=== PATIENT | female | born 1935 | race Caucasian/White ===

== ENCOUNTER 2021-05-24 16:29 | Emergency (ER) | payer MEDICARE, SELFPAY ==
[2021-05-24] VITALS (7 sets, daily range): BP systolic 171–212; BP diastolic 70–84; PULSE 66–77; RESP 17–19; TEMP 36.3; O2SAT 95–99; BMI 23.1
[2021-05-24] MEDS: methylPREDNISolone 125 MG/2 ML VIAL IV (18:34)
[2021-05-24] MEDS: SODIUM CHLORIDE 0.9% 1,000 ML 1000 ML IV (18:34)
[2021-05-24 18:43] LABS: Add Manual Diff / Slide Review NO; Basophils Absolute Auto 100 /uL (0-100); Basophils Percent Auto 0.7 % (0-2); Eosinophils Absolute Auto 100 /uL (0-450); Eosinophils Percent Auto 0.4 % (2-4); Hematocrit 36.3 % (36-46); Hemoglobin 12.3 g/dL (12.0-16.0); Lymphocytes Absolute Auto 2800 /uL (1100-4500); Lymphocytes Percent Auto 23.1 % (25-40); Mean Corpuscular Hemoglobin 29.6 PG (26-34); Mean Corpuscular Volume 87.1 fL (80-100); Monocytes Absolute Auto 800 /uL (0-900); Monocytes Percent Auto 6.5 % (3-14); Neutrophils Absolute Auto 8200 /uL (1500-7000); Neutrophils Percent Auto 69.3 % (50-75); Platelet Count 268 X10^3/uL (150-400); Red Blood Cell Count 4.17 X10^6/uL (4.0-5.2); Red Cell Distribution Width 12.9 % (11.6-14.8); White Blood Cell Count 11.9 X10^3/uL (4.5-11.0)
[2021-05-24 18:52] LABS: Lactate (Lactic Acid) 0.9 mmol/L (0.7-2.1)
[2021-05-24 18:53] LABS: Alanine Aminotransferase 16 IU/L (<35); Albumin 4.7 g/dL (3.5-5.0); Albumin Globulin Ratio 1.3 (1.0-2.8); Alkaline Phosphatase 81 U/L (38-126); Aspartate Aminotransferase 29 IU/L (14-36); Bilirubin Total 0.6 mg/dL (0.2-1.3); Blood Urea Nitrogen 16 mg/dL (7-17); Calcium 9.8 mg/dL (8.4-10.2); Carbon Dioxide 27 mmol/L (22-32); Chloride 94 mmol/L (98-107); Estimated Glomerular Filt Rate > 60.0 mL/min (>60); Globulin 3.5 g/dL (1.7-4.1); Glucose 101 mg/dL (80-110); HEMOLYSIS < 15 (0-50); Lipase 257 U/L (23-300); Potassium 4.1 mmol/L (3.4-5.1); Sodium 132 mmol/L (137-145); Total Protein 8.2 g/dL (6.3-8.2)
[2021-05-24 20:14] LABS: Appearance Urine UA CLEAR; Bilirubin Urine UA NEGATIVE (NEGATIVE); Color Urine UA YELLOW; Glucose Urine UA NEGATIVE (Negative); Ketones Urine UA TRACE (NEGATIVE); Leukocyte Esterase Urine UA NEGATIVE (NEGATIVE); Nitrite Urine UA NEGATIVE (Negative); Occult Blood Urine UA 1+ (Negative); Protein Urine UA NEGATIVE (Negative); Urobilinogen Urine UA 0.2 E.U./dL (0.2)
[2021-05-24 20:20] LABS: RBC Urine 1-5/HPF (0-5/HPF)
[2021-05-24 20:21] LABS: Bacteria Urine None Seen; Culture Indicated Urine Cult Not Indicated; WBC Urine None Seen (0-5/HPF)
--- NOTE | 2021-05-24 21:09 | ED_ITS ---
HPI - General Adult General Chief complaint: Dental/Oral Stated complaint: LT JAW CAROTID SWOLLEN/PAINFUL,ON ANTIBIOTICS 05/19 Time Seen by Provider: 05/24/21 18:23 Source: patient Mode of arrival: Family Vehicle Limitations: no limitations History of Present Illness HPI narrative: 85-year-old woman with a history of hypertension, hyperthyroidism, depression, hyperlipidemia who has had of week of left parotid swelling and pain. She saw her primary care doctor who started her on amoxicillin but she has not gotten any better. She states that it hurts somewhat she has not been able to eat much and specifically has not been able to try any sour liquids foods or candies. She says about a year ago she did have a parotid duct stone on the right side that was sharp and the dentist was able to physically remove with minimal difficulty. She has not noticed the same sharp sensation on the left side but does notice some swelling along the parotid duct. She has noticed increasing swelling over the left face and submental area. She describes a low-grade fever yesterday and pain becoming increasingly worse. She has had no recent cough, palpitation, chills, abdominal pain, vomiting or diarrhea. Related Data Home Medications Medication Instructions Recorded Confirmed COENZYME Q10/VITAMIN E (CO-Q-10 100 mg PO QDAY #0 11/10/12 100mg) Previous Rx's Medication Instructions Recorded betamethasone dipropionate 0.05 % 0 TOPICAL QDAY #15 gm 07/22/16 topical ointment atorvastatin 40 mg tablet (Lipitor) 40 mg PO HS #90 tab 12/01/16 metoprolol tartrate 25 mg tablet 25 mg PO BID #180 tab 01/31/17 methimazole 5 mg tablet 5 mg PO QDAY #90 tab 02/07/17 citalopram 20 mg tablet 20 mg PO QDAY #90 tab 03/02/17 lisinopril 10 1 tab PO BID #180 tab 03/02/17 mg-hydrochlorothiazide 12.5 mg tablet oxycodone-acetaminophen 5 mg-325 0.5 tab PO QID #56 tab 03/17/17 mg tablet dexamethasone 4 mg tablet 8 mg PO DAILY #6 tab 05/24/21 (Decadron) Allergies Allergy/AdvReac Type Severity Reaction Status Date / Time [place] Inhibitors AdvReac Unknown causes Verified 05/24/21 17:02 increased potassium Review of Systems Review of Systems Narrative: Remainder of complete review of systems is otherwise unremarkable except for that included in the HPI. Patient History Medical History Cataract (1999) Chicken pox Chronic back pain (2015) Colon polyps (1997) Graves' disease (2005) Hemorrhoids Hypertension Mumps Osteopenia (05/14/15) RLS (restless legs syndrome) (2015) Shoulder pain (2001) Whooping cough Surgical History Anesthesia History of cataract surgery (1999) History of shoulder surgery (2001) Family History Father Cancer Heart disease Mother Cancer Pancreatic cancer Brother Alcoholism Sister No problems noted. Social History Smoking Status: Current every day smoker Smoking Status: Current every day smoker tobacco type: cigarettes alcohol intake frequency: 0-2 drinks per day Substance Use Type: does not use Exam Narrative Exam Narrative: General: Alert appropriate in no acute distress HEENT: Swelling over the left angle of the jaw consistent with her parotid gland, tender to the touch but not erythematous or fluctuant. She has some trismus secondary to pain in that area. Minor swelling over the face toward her maxilla on the left and swelling under the angle of the jaw with no airway compromise. On the buccal mucosa the parotid duct opening is tender swollen no obvious stone is appreciated and I a.m. concerned that there may actually be some type of mass in that area. Respiratory: Able to speak in full sentences, no obvious respiratory distress Skin: No obvious rashes, warm and dry Neurologic: Grossly intact no obvious asymmetries or abnormalities Psych: appropriate insight and affect, cooperative Initial Vital Signs Initial Vital Signs: Vital Signs Temperature 97.3 F L 05/24/21 16:57 Pulse Rate 75 05/24/21 16:57 Respiratory Rate 19 05/24/21 16:57 Blood Pressure 212/84 H 05/24/21 16:57 Pulse Oximetry 98 05/24/21 16:57 Course Orders Ordered: ED Orders 05/24/21 18:41 Complete Blood Count AUTO DIFF Stat Comprehensive Metabolic Panel Stat Lactate (Lactic Acid) Stat Lipase Stat 05/24/21 18:45 Blood Culture Stat 05/24/21 20:10 Urinalysis and Microscopic Stat 05/24/21 21:21 CT soft tissue neck w con Stat Discontinued Medications Sodium Chloride (Normal Saline 0.9%) 1,000 mls @ 1,000 mls/hr IV BOLUS ONE Stop: 05/24/21 19:22 Last Infusion: 05/24/21 20:49 Dose: 0 mls/hr Documented by: Admin: 05/24/21 18:34 Dose: 1,000 mls/hr Documented by: BONITAOR Sodium Chloride (Normal Saline 0.9%) 1,000 mls @ 1,000 mls/hr IV BOLUS ONE Stop: 05/24/21 22:20 Last Admin: 05/24/21 21:37 Dose: Not Given Documented by: VIKAS Ceftriaxone Sodium 1,000 mg/ (Sodium Chloride) 100 mls @ 200 mls/hr IV NOW ONE Stop: 05/24/21 21:22 Last Infusion: 05/24/21 22:18 Dose: 0 mls/hr Documented by: Infusion: 05/24/21 21:43 Dose: 200 mls/hr Documented by: Infusion: 05/24/21 21:37 Dose: 0 mls/hr Documented by: Admin: 05/24/21 21:36 Dose: 200 mls/hr Documented by: VIKAS Ketorolac Tromethamine (Ketorolac 30 Mg/Ml Vial) 15 mg IV NOW ONE Stop: 05/24/21 21:29 Last Admin: 05/24/21 21:34 Dose: 15 mg Documented by: VIKAS Methylprednisolone (Methylprednisolone 125 Mg/2 Ml Vial) 125 mg IV NOW ONE Stop: 05/24/21 18:24 Last Admin: 05/24/21 18:34 Dose: 125 mg Documented by: VIKAS Vital Signs Vital signs: Vital Signs - 8 hr 05/24/21 16:57 05/24/21 19:07 05/24/21 19:09 Temperature 97.3 F L Pulse Rate 75 69 66 Respiratory Rate 19 17 Blood Pressure 212/84 H 190/82 H 193/81 H Pulse Oximetry 98 97 99 05/24/21 19:30 05/24/21 19:31 05/24/21 20:01 Temperature Pulse Rate 67 71 74 Respiratory Rate 18 Blood Pressure 199/75 H 171/70 H Pulse Oximetry 98 98 98 05/24/21 22:59 Temperature Pulse Rate 77 Respiratory Rate Blood Pressure 193/83 H Pulse Oximetry 95 Medical Decision Making Lab Data Result diagrams: 05/24/21 18:41 05/24/21 18:41 Labs: Lab Results 05/24/21 05/24/21 05/24/21 Range/Units 18:41 18:41 18:41 WBC 11.9 H (4.5-11.0) X10^3/uL RBC 4.17 (4.0-5.2) X10^6/uL Hgb 12.3 (12.0-16.0) g/dL Hct 36.3 (36-46) % MCV 87.1 (80-100) fL MCH 29.6 (26-34) PG MCHC 34.0 (30-36) % RDW 12.9 (11.6-14.8) % Plt Count 268 (150-400) X10^3/uL Neut % (Auto) 69.3 (50-75) % Lymph % (Auto) 23.1 L (25-40) % Tyler % (Auto) 6.5 (3-14) % Eos % (Auto) 0.4 L (2-4) % Baso % (Auto) 0.7 (0-2) % Neut # (Auto) 8200 H (7085-8387) /uL Lymph # (Auto) 2800 (0519-1629) /uL Tyler # (Auto) 800 (0-900) /uL Eos # (Auto) 100 (0-450) /uL Baso # (Auto) 100 (0-100) /uL Sodium 132 L (137-145) mmol/L Potassium 4.1 (3.4-5.1) mmol/L Chloride 94 L (98-107) mmol/L Carbon Dioxide 27 (22-32) mmol/L BUN 16 (7-17) mg/dL Creatinine 0.80 (0.52-1.04) mg/dL Estimated GFR > 60.0 (>60) mL/min BUN/Creatinine Ratio 20.0 (6-22) Glucose 101 (80-110) mg/dL Lactate 0.9 (0.7-2.1) mmol/L Calcium 9.8 (8.4-10.2) mg/dL Total Bilirubin 0.6 (0.2-1.3) mg/dL AST 29 (14-36) IU/L ALT 16 (<35) IU/L Alkaline Phosphatase 81 (38-126) U/L Total Protein 8.2 (6.3-8.2) g/dL Albumin 4.7 (3.5-5.0) g/dL Globulin 3.5 (1.7-4.1) g/dL Albumin/Globulin Ratio 1.3 (1.0-2.8) Lipase 257 (23-300) U/L Urine Color Urine Appearance Urine pH (4.5-8.0) Ur Specific Burnet (1.000-1.035) Urine Protein (Negative) Urine Glucose (UA) (Negative) g/dL Urine Ketones (NEGATIVE) Urine Occult Blood (Negative) Urine Nitrate (Negative) Urine Bilirubin (NEGATIVE) Urine Urobilinogen (0.2) E.U./dL Ur Leukocyte Esterase (NEGATIVE) Urine RBC (0-5/HPF) Urine WBC (0-5/HPF) Urine Bacteria (None) Ur Culture Indicated? 05/24/21 Range/Units 20:10 WBC (4.5-11.0) X10^3/uL RBC (4.0-5.2) X10^6/uL Hgb (12.0-16.0) g/dL Hct (36-46) % MCV (80-100) fL MCH (26-34) PG MCHC (30-36) % RDW (11.6-14.8) % Plt Count (150-400) X10^3/uL Neut % (Auto) (50-75) % Lymph % (Auto) (25-40) % Tyler % (Auto) (3-14) % Eos % (Auto) (2-4) % Baso % (Auto) (0-2) % Neut # (Auto) (6409-1059) /uL Lymph # (Auto) (8310-3634) /uL Tyler # (Auto) (0-900) /uL Eos # (Auto) (0-450) /uL Baso # (Auto) (0-100) /uL Sodium (137-145) mmol/L Potassium (3.4-5.1) mmol/L Chloride (98-107) mmol/L Carbon Dioxide (22-32) mmol/L BUN (7-17) mg/dL Creatinine (0.52-1.04) mg/dL Estimated GFR (>60) mL/min BUN/Creatinine Ratio (6-22) Glucose (80-110) mg/dL Lactate (0.7-2.1) mmol/L Calcium (8.4-10.2) mg/dL Total Bilirubin (0.2-1.3) mg/dL AST (14-36) IU/L ALT (<35) IU/L Alkaline Phosphatase (38-126) U/L Total Protein (6.3-8.2) g/dL Albumin (3.5-5.0) g/dL Globulin (1.7-4.1) g/dL Albumin/Globulin Ratio (1.0-2.8) Lipase (23-300) U/L Urine Color Yellow Urine Appearance Clear Urine pH 7.0 (4.5-8.0) Ur Specific Burnet 1.010 (1.000-1.035) Urine Protein Negative (Negative) Urine Glucose (UA) Negative (Negative) g/dL Urine Ketones Trace H (NEGATIVE) Urine Occult Blood 1+ H (Negative) Urine Nitrate Negative (Negative) Urine Bilirubin Negative (NEGATIVE) Urine Urobilinogen 0.2 (0.2) E.U./dL Ur Leukocyte Esterase Negative (NEGATIVE) Urine RBC 1-5/hpf (0-5/HPF) Urine WBC None seen (0-5/HPF) Urine Bacteria None seen (None) Ur Culture Indicated? Cult not indicated Imaging Data CT soft tissue neck: Radiologist's Impression: FINDINGS:? Image quality:? Excellent.? ? Lymph nodes:? No definite lymphadenopathy by size criteria. ? Vessels:? Visualized vasculature appears patent.? ? Neck spaces:? There is an oval solid mass within the left hypopharynx centered in the left piriform sinus measuring approximately 2.3 x 1.9 x 3.2 cm.? There is associated moderate narrowing of the airway.? The mass demonstrates extension superiorly to involve the left aspect of the epiglottis.? There is extension inferiorly to the level of the false vocal cords and thyroid cartilage.? Invasion into the posterior and lateral rodriguez of the hypopharynx cannot be excluded.? The vocal cords appear symmetric.? The oropharynx and nasopharynx demonstrate no mucosal lesions.? The base of tongue also demonstrates no discrete mass. ? Glands:? The parotid and submandibular glands appear normal.? There is a left thyroid solid nodule measuring to 2.1 x 1.5 cm. ? Miscellaneous:? Visualized brain and orbits appear normal.? The visualized lungs demonstrate scarring in the apices.? Superficial soft tissues appear normal. ? Bones:? No suspicious bony lesions.? Visualized sinuses and mastoids appear unremarkable. ? ? ? IMPRESSION:? ? 1. Solid mass in the left hypopharynx centered within the piriform sinus demonstrated.? 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 Direct visualization is recommended. ? 2. No lymphadenopathy in the neck by size criteria. ? 3. Solid left thyroid nodule measuring up to 2.1 cm. Recommend further evaluation with thyroid ultrasound.? Dictated by: Tom Pelletier M.D. on 05/24/2021 at 21:51? ?? MDM Narrative Medical decision making narrative: 85-year-old woman with a week of left-sided parotid pain and swelling not improving with amoxicillin and unable to eat or drink secondary to the pain. Increasing fullness now including her face and under the angle of her jaw. Airway is not involved. Tenderness over the parotid duct with no obvious palpable stone. Mild leukocytosis. Will give her a L of fluid, g of IV ceftriaxone, Toradol for pain control and increase that to narcotics if required. Will obtain a CT scan of the soft tissue of the parotid gland/neck CT scan reveals a solid mass in the left hypopharynx measuring 2.3 x 1.9 x 3.2 c m as well as solid left thyroid nodule measuring 2.1 cm. 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 She does feel significantly better after both steroids and Toradol. Findings reviewed with patient and her son in detail. I spoke with Dr. Williamson who will have his office contact her for an appointment in the near future. Also spoke with Dr. Shelton Barksdale will be expecting to see her in his office for evaluation and hopefully fine needle biopsy of the area of concern. In the meantime, the patient does have small amount of Percocet at home that she occasionally uses for interstitial cystitis pain. I have told her she can use this as well as ibuprofen. I have also given her a 3 day course of Decadron to help with swelling as the seem to be the pivotal component in reducing pain for her. Questions were answered and patient and her son felt comfortable with discharge home. Discharge Plan Departure Patient Disposition: Home Clinical Impression: Mass of hypopharynx Activity Restrictions/Additional Instructions: Thank you for coming in today This is not your parotid gland and it is not an infection. You can stop taking your antibiotics. Unfortunately, your CT scan shows a mass in the back of your throat that is very likely a cancer. I am so sorry to find that. You were given a dose of steroid in the emergency department and I believe that is the main thing that helped with the pain. It has reduced the swelling a little bit. I am going to have you complete 3 more days of steroids to help with the swelling and pain. There are number of things that still need to happen to figure out what this is and what needs to happen next. First, you will need to see an ear nose and throat doctor and he will need to do an exam and hopefully be able to do a small needle aspiration to be able to get some cells to look at under the microscope and figure out what this truly is and what we need to do next. I spoke with Dr. Shelton Barksdale with [facility]. Please give his office a call at [phone] tomorrow morning. He likely will not be able to see you on Tuesday but should be able to fit you in early this week. I also spoke with Dr. Williamson, one of our oncologists. Please expect a call from the the oncology department to set up an appointment to meet with one of the oncologists. If you do have continued pain, you can use some of the Percocet that you have at home for your interstitial cystitis. Please let Dr. Mills know about your diagnosis so he can refill Percocet if needed. Using 400 mg of ibuprofen (2 [id number] pills) and 1 Tylenol every 6 hour s can be very helpful in controlling pain. I wish you the very best as you work through all of these doctors appointments to get to a final diagnosis. Prescriptions: New dexamethasone [Decadron] 4 mg tablet 8 mg PO DAILY Qty: 6 RF: 0 No Action COENZYME Q10/VITAMIN E (CO-Q-10 100mg) 100 mg PO QDAY Qty: 0 RF: 0 betamethasone dipropionate 0.05 % ointment 0 Topical QDAY Qty: 15 RF: 0 atorvastatin [Lipitor] 40 MG tablet 40 mg PO HS Qty: 90 RF: 1 metoprolol tartrate 25 MG tablet 25 mg PO BID Qty: 180 RF: 1 methimazole 5 MG tablet 5 mg PO QDAY Qty: 90 RF: 1 citalopram 20 MG tablet 20 mg PO QDAY Qty: 90 RF: 0 lisinopril-hydrochlorothiazide 10 MG/12.5 MG tablet 1 tab PO BID Qty: 180 RF: 1 oxycodone-acetaminophen 5 MG/325 MG tablet 0.5 tab PO QID Qty: 56 RF: 0 Referrals: Shelton Barksdale MD [Physician] - Geovany Lemus MD [Physician] - Kj Schuster MD [Primary Care Provider] -
--- NOTE | 2021-05-24 21:21 | DI.CT.S_ITS ---
PROCEDURE: CT SOFT TISSUE NECK W CON INDICATIONS: parotid glan swelling/fullness worse after 1 week TECHNIQUE: After the administration of intravenous contrast, 3.0 mm axial sections acquired from the sella to the aortic arch. Additional oblique axial 3.0 mm sections acquired through the pharynx. 3 mm thick coronal and sagittal reformats were generated. For radiation dose reduction, the following was used: automated exposure control. COMPARISON: None. FINDINGS: Image quality: Excellent. Lymph nodes: No definite lymphadenopathy by size criteria. Vessels: Visualized vasculature appears patent. Neck spaces: There is an oval solid mass within the left hypopharynx centered in the left piriform sinus measuring approximately 2.3 x 1.9 x 3.2 cm. There is associated moderate narrowing of the airway. The mass demonstrates extension superiorly to involve the left aspect of the epiglottis. There is extension inferiorly to the level of the false vocal cords and thyroid cartilage. Invasion into the posterior and lateral rodriguez of the hypopharynx cannot be excluded. The vocal cords appear symmetric. The oropharynx and nasopharynx demonstrate no mucosal lesions. The base of tongue also demonstrates no discrete mass. Glands: The parotid and submandibular glands appear normal. There is a left thyroid solid nodule measuring to 2.1 x 1.5 cm. Miscellaneous: Visualized brain and orbits appear normal. The visualized lungs demonstrate scarring in the apices. Superficial soft tissues appear normal. Bones: No suspicious bony lesions. Visualized sinuses and mastoids appear unremarkable. IMPRESSION: 1. Solid mass in the left hypopharynx centered within the piriform sinus demonstrated. Findings likely represent a neoplasm such as squamous cell carcinoma. Direct visualization is recommended. 2. No lymphadenopathy in the neck by size criteria. 3. Solid left thyroid nodule measuring up to 2.1 cm. Recommend further evaluation with thyroid ultrasound. Dictated by: Tom Pelletier M.D. on 05/24/2021 at 21:51 Approved by: Tom Pelletier M.D. on 05/24/2021 at 22:06
[2021-05-24] MEDS: KETOROLAC 30 MG/ML VIAL 15 MG IV (21:34)
[2021-05-24] MEDS: cefTRIAXone 1,000 MG in SODIUM CHLORIDE 0.9% 100 ML 200 ML IV (21:36)
== END 2021-05-24 23:44 | disposition home or self-care (01) ==
PROVIDERS: Emergency Provider Emergency Medicine; Family Provider Family Medicine; PCP Family Medicine
DX: J39.2 Other diseases of pharynx (principal)
CPT/HCPCS: 36415; 70491; 80053; 81001; 83605; 83690; 85025; 87040; 96361; 96365; 96375; 99284; J0696; J1885; J2930; Q9967

== ENCOUNTER 2021-06-04 18:02 | Observation (INO) | payer MEDICARE, SELFPAY ==
[2021-06-04] VITALS (9 sets, daily range): BP systolic 138–202; BP diastolic 64–90; PULSE 70–80; RESP 14–16; TEMP 36.2–36.7; O2SAT 97–100; BMI 22.3
--- NOTE | 2021-06-04 18:14 | ED.NAVMDI ---
HPI - Nausea/Vomiting/Diarrhea General Chief complaint: Nausea/Vomiting/Diarrhea Stated complaint: Diarrhea,pt on Augmentin Time Seen by Provider: 06/04/21 18:30 History of Present Illness HPI Narrative: 85-year-old female smoker with history of hyperlipidemia presents by air medical transport for evaluation of weakness and lightheadedness after multiple days of loose watery stool. She had started with some pain and swelling on the left side of her face and was diagnosed with an infectious process and placed on Augmentin. She had imaging wits suggested the potential of a tumor on her vocal cords but after evaluation by ENT it was thought to be a cyst. Since being on Augmentin she has developed crampy abdominal pain and frequent episodes of loose watery stools that are foul smelling. She has had very little to eat or drink in the past 2 weeks. She is dizzy and lightheaded and on arrival medics found her to be orthostatic. She was given 500 cc of fluid EN route and is here for evaluation. Related Data Home Medications Medication Instructions Recorded Confirmed COENZYME Q10/VITAMIN E (CO-Q-10 100 mg PO QDAY #0 11/10/12 06/04/21 100mg) betamethasone dipropionate 0.05 % 0 TOPICAL QWEEK 06/04/21 topical ointment oxycodone-acetaminophen 5 mg-325 1 tab PO QID PRN MDD 4 06/04/21 06/04/21 mg tablet Previous Rx's Medication Instructions Recorded atorvastatin 40 mg tablet (Lipitor) 40 mg PO HS #90 tab 12/01/16 metoprolol tartrate 25 mg tablet 25 mg PO BID #180 tab 01/31/17 methimazole 5 mg tablet 5 mg PO QDAY #90 tab 02/07/17 citalopram 20 mg tablet 20 mg PO QDAY #90 tab 03/02/17 lisinopril 10 1 tab PO BID #180 tab 03/02/17 mg-hydrochlorothiazide 12.5 mg tablet Allergies Allergy/AdvReac Type Severity Reaction Status Date / Time [place] Inhibitors AdvReac Unknown causes Verified 06/04/21 18:14 increased potassium Review of Systems Review of Systems Narrative: GENERAL: See HPI HEENT: See HPI RESPIRATORY: Denies dyspnea, cough, wheezing, hemoptysis, sputum. CARDIOVASCULAR: Denies chest pain, palpitations, orthopnea, edema, GASTROINTESTINAL: See HPI : Denies dysuria, frequency, incontinence, hematuria, urinary retention. MUSCULOSKELETAL: denies weakness, joint pain, or bony pain SKIN: Denies rash, skin lesions, or other NEUROLOGIC: Denies weakness, headache, numbness, change in speech, confusion, seizures, incoordination. PSYCHIATRIC: No concerning psychosocial issues. 12 point review of systems is negative except for those stated above Patient History Medical History Cataract (1999) Chicken pox Chronic back pain (2015) Colon polyps (1997) Graves' disease (2005) Hemorrhoids Hypertension Mumps Osteopenia (05/14/15) RLS (restless legs syndrome) (2015) Shoulder pain (2001) Whooping cough Surgical History Anesthesia History of cataract surgery (1999) History of shoulder surgery (2001) Family History Father Cancer Heart disease Mother Cancer Pancreatic cancer Brother Alcoholism Sister No problems noted. Social History household members: none Smoking Status: Former smoker alcohol intake: never Smoking Status: Current every day smoker tobacco type: cigarettes alcohol intake frequency: 0-2 drinks per day Substance Use Type: does not use Exam Narrative Exam Narrative: GENERAL: [85 year old patient appears stated age. Ill appearing HEAD: Atraumatic. Normocephalic. EYES: Pupils equal round and reactive. Extraocular motions intact. No scleral icterus. No injection or drainage. ENT:Dry mucous membranes. Mild left sided facial swelling and erythema withouit fluctuance. Nose without bleeding, purulent drainage. Throat without erythema, tonsillar hypertrophy or exudate. Airway patent. NECK: Trachea midline. Non tender CARDIOVASCULAR: Regular rate and rhythm without murmurs, gallops, or rubs. RESPIRATORY: Clear to auscultation. Breath sounds equal bilaterally. No wheezes, rales, or rhonchi. GASTROINTESTINAL: Abdomen soft, non-tender, nondistended. EXTREMITIES: No edema or joint tenderness. BACK: Nontender without deformity or crepitance. No flank tenderness. NEURO: AOx3. SKIN: Poor skin turgor. No rash or erythema of visible areas Initial Vital Signs Initial Vital Signs: Vital Signs Temperature 98.0 F 06/04/21 18:04 Pulse Rate 71 06/04/21 18:04 Respiratory Rate 14 06/04/21 18:04 Blood Pressure 164/76 H 06/04/21 18:04 Pulse Oximetry 98 06/04/21 18:04 Course Orders Ordered: Acetaminophen (Acetaminophen 325 Mg Tablet) 650 mg PO Q6HR PRN PRN Reason: Fever/Mild Pain (1-3) Atorvastatin Calcium (Atorvastatin 20 Mg Tablet) 40 mg PO BEDTIME [facility] Last Admin: 06/04/21 22:25 Dose: 40 mg Documented by: HANSA Citalopram Hydrobromide (Citalopram 10 Mg Tablet) 20 mg PO DAILY [facility] Enoxaparin Sodium (Enoxaparin 40 Mg/0.4 Ml Syringe) 40 mg SUBCUT DAILY [facility] Dextrose/Sodium Chloride (Dextrose 5%-0.9% Ns) 1,000 mls @ 125 mls/hr IV CONT [facility] Last Admin: 06/04/21 22:24 Dose: 125 mls/hr Documented by: HANSA Lisinopril (Lisinopril 10 Mg Tablet) 10 mg PO DAILY [facility] Methimazole (Methimazole 5 Mg Tablet) 5 mg PO DAILY [facility] Metoprolol Succinate (Metoprolol Er 25 Mg Tablet) 25 mg PO BID [facility] Last Admin: 06/04/21 22:26 Dose: 25 mg Documented by: HANSA Naloxone HCl (Naloxone 0.4 Mg/Ml Vial) 0.2 mg IV Q2MIN PRN PRN Reason: Opiate Reversal Ondansetron HCl (Ondansetron 4 Mg/2 Ml Inj) 4 mg IV Q8HR PRN PRN Reason: Nausea And Vomiting Oxycodone/Acetaminophen (Oxycodone/Acetaminophen 5/325 Tablet) 1 tab PO Q4HR PRN PRN Reason: Pain, Moderate (4-6) Last Admin: 06/04/21 22:25 Dose: 1 tab Documented by: HANSA Discontinued Medications Sodium Chloride (Normal Saline 0.9%) 1,000 mls @ 1,000 mls/hr IV BOLUS ONE Stop: 06/04/21 19:06 Last Infusion: 06/04/21 19:43 Dose: 0 mls/hr Documented by: Admin: 06/04/21 18:20 Dose: 1,000 mls/hr Documented by: ATAYLOR Vital Signs Vital signs: Vital Signs - 8 hr 06/04/21 18:04 Temperature 98.0 F Pulse Rate 71 Respiratory Rate 14 Blood Pressure 164/76 H Pulse Oximetry 98 MDM - Nausea/Vomiting/Diarrhea Lab Data Result diagrams: 06/04/21 18:25 06/04/21 18:25 Labs: Lab Results 06/04/21 06/04/21 06/04/21 Range/Units 18:25 18:25 18:25 WBC 17.2 H (4.5-11.0) X10^3/uL RBC 4.47 (4.0-5.2) X10^6/uL Hgb 13.1 (12.0-16.0) g/dL Hct 38.3 (36-46) % MCV 85.7 (80-100) fL MCH 29.3 (26-34) PG MCHC 34.2 (30-36) % RDW 13.1 (11.6-14.8) % Plt Count 302 (150-400) X10^3/uL Neut % (Auto) 80.0 H (50-75) % Lymph % (Auto) 14.7 L (25-40) % [place] % (Auto) 4.5 (3-14) % Eos % (Auto) 0.4 L (2-4) % Baso % (Auto) 0.4 (0-2) % Neut # (Auto) 31906 H (2477-8009) /uL Lymph # (Auto) 2500 (4205-5174) /uL [place] # (Auto) 800 (0-900) /uL Eos # (Auto) 100 (0-450) /uL Baso # (Auto) 100 (0-100) /uL Sodium 121 L (137-145) mmol/L Potassium 3.8 (3.4-5.1) mmol/L Chloride 88 L (98-107) mmol/L Carbon Dioxide 27 (22-32) mmol/L BUN 24 H (7-17) mg/dL Creatinine 0.85 (0.52-1.04) mg/dL Estimated GFR > 60.0 (>60) mL/min BUN/Creatinine Ratio 28.2 H (6-22) Glucose 108 (80-110) mg/dL Lactate 1.1 (0.7-2.1) mmol/L Calcium 8.9 (8.4-10.2) mg/dL Magnesium (1.6-2.3) mg/dL Total Bilirubin 0.5 (0.2-1.3) mg/dL AST 41 H (14-36) IU/L ALT 18 (<35) IU/L Alkaline Phosphatase 73 (38-126) U/L Total Protein 6.5 (6.3-8.2) g/dL Albumin 3.7 (3.5-5.0) g/dL Globulin 2.8 (1.7-4.1) g/dL Albumin/Globulin Ratio 1.3 (1.0-2.8) Lipase (23-300) U/L SARS-CoV-2 (PCR) (Negative) 06/04/21 06/04/21 Range/Units 18:25 18:45 WBC (4.5-11.0) X10^3/uL RBC (4.0-5.2) X10^6/uL Hgb (12.0-16.0) g/dL Hct (36-46) % MCV (80-100) fL MCH (26-34) PG MCHC (30-36) % RDW (11.6-14.8) % Plt Count (150-400) X10^3/uL Neut % (Auto) (50-75) % Lymph % (Auto) (25-40) % [place] % (Auto) (3-14) % Eos % (Auto) (2-4) % Baso % (Auto) (0-2) % Neut # (Auto) (3724-6721) /uL Lymph # (Auto) (5787-7736) /uL [place] # (Auto) (0-900) /uL Eos # (Auto) (0-450) /uL Baso # (Auto) (0-100) /uL Sodium (137-145) mmol/L Potassium (3.4-5.1) mmol/L Chloride (98-107) mmol/L Carbon Dioxide (22-32) mmol/L BUN (7-17) mg/dL Creatinine (0.52-1.04) mg/dL Estimated GFR (>60) mL/min BUN/Creatinine Ratio (6-22) Glucose (80-110) mg/dL Lactate (0.7-2.1) mmol/L Calcium (8.4-10.2) mg/dL Magnesium 1.8 (1.6-2.3) mg/dL Total Bilirubin (0.2-1.3) mg/dL AST (14-36) IU/L ALT (<35) IU/L Alkaline Phosphatase (38-126) U/L Total Protein (6.3-8.2) g/dL Albumin (3.5-5.0) g/dL Globulin (1.7-4.1) g/dL Albumin/Globulin Ratio (1.0-2.8) Lipase 560 H (23-300) U/L SARS-CoV-2 (PCR) Negative (Negative) Urine Dip Bedside Urine Glucose Negative Bedside Urine Bilirubin - Negative Bedside Urine Ketone - Negative Urine Specific [place] 1.015 Bedside Urine Occult Blood +/- Bedside Urine pH 6.5 Bedside Urine Protein +/- 15 Bedside Urine Urobilinogen 0.2 Bedside Urine Nitrite - Negative Bedside Urine Leukocytes - Negative Esterase MDM Narrative Medical decision making narrative: Elderly female with frequent loose stools and significant dehydration over the past few days. She has become dehydrated is orthostatic and has had little if anything to eat or drink. There is concern for C diff but stool cultures have not yet been obtained. Labs demonstrate a significantly low sodium. She requires hospitalization for ongoing treatment and stabilization of her condition Discharge Plan Departure Patient Disposition: Admitted As Inpatient Clinical Impression: Acute hyponatremia, Diarrhea, Weakness Admit Date/Time: 06/04/21 20:18 Admit Provider: Jennifer Ortega
[2021-06-04] MEDS: SODIUM CHLORIDE 0.9% 1,000 ML 1000 ML IV (18:20)
[2021-06-04 18:41] LABS: Add Manual Diff / Slide Review NO; Basophils Absolute Auto 100 /uL (0-100); Basophils Percent Auto 0.4 % (0-2); Eosinophils Absolute Auto 100 /uL (0-450); Eosinophils Percent Auto 0.4 % (2-4); Hematocrit 38.3 % (36-46); Hemoglobin 13.1 g/dL (12.0-16.0); Lymphocytes Absolute Auto 2500 /uL (1100-4500); Lymphocytes Percent Auto 14.7 % (25-40); Mean Corpuscular HGB Conc 34.2 % (30-36); Mean Corpuscular Hemoglobin 29.3 PG (26-34); Mean Corpuscular Volume 85.7 fL (80-100); Monocytes Absolute Auto 800 /uL (0-900); Monocytes Percent Auto 4.5 % (3-14); Neutrophils Absolute Auto 13800 /uL (1500-7000); Platelet Count 302 X10^3/uL (150-400); Red Blood Cell Count 4.47 X10^6/uL (4.0-5.2); Red Cell Distribution Width 13.1 % (11.6-14.8); White Blood Cell Count 17.2 X10^3/uL (4.5-11.0)
[2021-06-04 19:02] LABS: Lactate (Lactic Acid) 1.1 mmol/L (0.7-2.1)
[2021-06-04 19:03] LABS: Alanine Aminotransferase 18 IU/L (<35); Albumin 3.7 g/dL (3.5-5.0); Albumin Globulin Ratio 1.3 (1.0-2.8); Alkaline Phosphatase 73 U/L (38-126); Aspartate Aminotransferase 41 IU/L (14-36); BUN Creatinine Ratio 28.2 (6-22); Bilirubin Total 0.5 mg/dL (0.2-1.3); Blood Urea Nitrogen 24 mg/dL (7-17); Calcium 8.9 mg/dL (8.4-10.2); Carbon Dioxide 27 mmol/L (22-32); Chloride 88 mmol/L (98-107); Estimated Glomerular Filt Rate > 60.0 mL/min (>60); Globulin 2.8 g/dL (1.7-4.1); Glucose 108 mg/dL (80-110); HEMOLYSIS < 15 (0-50); Potassium 3.8 mmol/L (3.4-5.1); Sodium 121 mmol/L (137-145); Total Protein 6.5 g/dL (6.3-8.2)
[2021-06-04 19:27] LABS: Lipase 560 U/L (23-300); Magnesium 1.8 mg/dL (1.6-2.3)
[2021-06-04 19:55] LABS: COVID19 - ADMIT (NP swab/PCR) Negative (Negative)
--- NOTE | 2021-06-04 21:59 | P.HP_ITS ---
History of Present Illness History of Present Illness Date Patient Seen: 06/04/21 Chief complaint: Diarrhea,pt on Augmentin Narrative: The patient is an 85-year-old female with a history of Graves disease, hypertension, chronic back pain, restless leg syndrome who developed parotidits about 2 weeks ago. The patient was treated with 7 days of amoxicillin. She continued to have swelling pain and drainage from the left parotid gland. 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 Directvisualization is recommended.2. No lymphadenopathy in the neck by size criteria.3. Solid left thyroid nodule measuring up to 2.1 cm. Recommend further evaluation withthyroid ultrasound.? Patient was referred to ear nose and throat for further evaluation. Upon his evaluation he felt this was likely a cyst and not a neoplasm. The patient was also started on Augmentin for treatment of her parotidits. She she took the Augmentin for total of 3 days. Patient reports she had poor appetite as there was drainage from her parotid gland with pus draining causing decreased appetite. It she had been trying to drink liquids as much as possible. The patient reports development abrupt onset diarrhea today. She initially had formed stools and subsequently had loose watery stools. She reports crampy abdominal pain associated with this. She did not have any bloody stools or blood right bright red blood per rectum. She did have some nausea and vomiting. She had no hematemesis. She denies any fever or chills. She had no shortness of breath, no headache, no blurred vision, the patient was dizzy and weak. She lives on [address]. She was transported here for weakness dizziness. The patient reports since arrival she has had no further stools for the past 2.5 hours. Patient is admitted to the hospital for further evaluation of diarrhea, dehydration, and weakness. Patient History Medical History Cataract (1999) Chicken pox Chronic back pain (2015) Colon polyps (1997) Graves' disease (2005) Hemorrhoids Hypertension Mumps Osteopenia (05/14/15) RLS (restless legs syndrome) (2015) Shoulder pain (2001) Whooping cough Surgical History Anesthesia History of cataract surgery (1999) History of shoulder surgery (2001) Family & Social History Family History Father Cancer Heart disease Mother Cancer Pancreatic cancer Brother Alcoholism Sister No problems noted. Social History: household members none Prior Living Arrangements House Safety & Behavioral: Feels Safe in Current Yes Environment Been Physically Hurt or No Threatened By a Person Suicidal Ideation Description None Suicide Plan Description No Plan Tobacco & Substance use: Tobacco type cigarettes Smoking Status Former smoker alcohol intake never alcohol intake frequency 0-2 drinks per day Substance Use Type does not use Meds Home Medications and Allergies Home Medications Medication Instructions Recorded Confirmed Type COENZYME Q10/VITAMIN E (CO-Q-10 100 mg PO QDAY #0 11/10/12 06/04/21 History 100mg) atorvastatin 40 mg tablet (Lipitor) 40 mg PO HS #90 tab 12/01/16 06/04/21 Rx metoprolol tartrate 25 mg tablet 25 mg PO BID #180 tab 01/31/17 06/04/21 Rx methimazole 5 mg tablet 5 mg PO QDAY #90 tab 02/07/17 06/04/21 Rx citalopram 20 mg tablet 20 mg PO QDAY #90 tab 03/02/17 06/04/21 Rx lisinopril 10 1 tab PO BID #180 tab 03/02/17 06/04/21 Rx mg-hydrochlorothiazide 12.5 mg tablet betamethasone dipropionate 0.05 % 0 TOPICAL QWEEK 06/04/21 History topical ointment oxycodone-acetaminophen 5 mg-325 1 tab PO QID PRN MDD 4 06/04/21 06/04/21 History mg tablet Allergies Allergy/AdvReac Type Severity Reaction Status Date / Time [place] Inhibitors AdvReac Unknown causes Verified 06/04/21 18:14 increased potassium Review of Systems Review of Systems Narrative: Ten point review of systems is negative except as above Exam Vital Signs (past 8 hours): - 06/04/21 18:04 06/04/21 19:27 06/04/21 19:30 Temperature 98.0 F Pulse Rate 71 77 74 Respiratory Rate 14 Blood Pressure 164/76 H 202/88 H Pulse Oximetry 98 98 100 06/04/21 20:00 06/04/21 20:30 06/04/21 21:00 Temperature Pulse Rate 80 75 76 Respiratory Rate 15 16 Blood Pressure 202/90 H 161/74 H 167/74 H Pulse Oximetry 99 99 98 Oxygen Delivery Method Room Air Narrative Exam Narrative: Pleasant ill-appearing elderly female lying in bed HENHI Other: HEENT: Normocephalic atraumatic, extraocular muscles are intact, oropharynx is clear, neck is supple, thyroid is palpable. There is no adenopathy. Resp Other: Lungs: Clear to auscultation Cardio Other: Cardiac exam: Regular rate and rhythm normal S1-S2 GI Other: Abdomen: Soft nontender nondistended no appreciable hepatosplenomegaly Skin Other: Skin exam: No lesion Extrem Other: Extremities: No edema Psych Other: Patient has normal thought process, no hallucinations, normal judgment and thought content. Objective Labs Result Diagrams: 06/04/21 18:25 06/04/21 18:25 Labs: Laboratory Results - last 24 hr 06/04/21 06/04/21 06/04/21 18:25 18:25 18:25 WBC 17.2 H RBC 4.47 Hgb 13.1 Hct 38.3 MCV 85.7 MCH 29.3 MCHC 34.2 RDW 13.1 Plt Count 302 Neut % (Auto) 80.0 H Lymph % (Auto) 14.7 L [place] % (Auto) 4.5 Eos % (Auto) 0.4 L Baso % (Auto) 0.4 Neut # (Auto) 20105 H Lymph # (Auto) 2500 [place] # (Auto) 800 Eos # (Auto) 100 Baso # (Auto) 100 Sodium 121 L Potassium 3.8 Chloride 88 L Carbon Dioxide 27 BUN 24 H Creatinine 0.85 Estimated GFR > 60.0 BUN/Creatinine Ratio 28.2 H Glucose 108 Lactate 1.1 Calcium 8.9 Magnesium Total Bilirubin 0.5 AST 41 H ALT 18 Alkaline Phosphatase 73 Total Protein 6.5 Albumin 3.7 Globulin 2.8 Albumin/Globulin Ratio 1.3 Lipase SARS-CoV-2 (PCR) 06/04/21 06/04/21 18:25 18:45 WBC RBC Hgb Hct MCV MCH MCHC RDW Plt Count Neut % (Auto) Lymph % (Auto) [place] % (Auto) Eos % (Auto) Baso % (Auto) Neut # (Auto) Lymph # (Auto) [place] # (Auto) Eos # (Auto) Baso # (Auto) Sodium Potassium Chloride Carbon Dioxide BUN Creatinine Estimated GFR BUN/Creatinine Ratio Glucose Lactate Calcium Magnesium 1.8 Total Bilirubin AST ALT Alkaline Phosphatase Total Protein Albumin Globulin Albumin/Globulin Ratio Lipase 560 H SARS-CoV-2 (PCR) Negative Assessment & Plan Assessment & Plan narrative: 85-year-old female with a history of hypertension, Graves disease, hyperlipidemia admitted to the hospital with diarrhea, and dehydration * Patient presents with a white count of 17.2, hemoglobin 13.1 and hematocrit 38.3 * She has had no further diarrhea since admission, however GI panel and C diff PCR will be obtained * Given her significant diarrhea and hyponatremia it she will be started on IV fluids * Will hold hydrochlorothiazide but continue her usual lisinopril and metoprolol for hypertension * Will repeat electrolytes in the morning * Will repeat white count in the morning * Will avoid antidiarrheals until the C diff study is resulted Hypertension * Will continue metoprolol 25 p.o. b.i.d. * Continue lisinopril * Hold hydrochlorothiazide given hyponatremia Hyponatremia/hypochloremia * Multifactorial * Likely secondary to significant diarrhea, volume depletion, and hydrochlorothiazide * Will start D5 normal saline * Will repeat lytes in the morning Hyperlipidemia * Continue atorvastatin Graves disease * Continue methimazole Chronic back pain * Continue oxycodone * Patient reports she is a full code will note that her record accordingly Patient will be admitted to the hospital under observation I have utilized all available needs to review update and confirm the patient's home medications Time Spent With Patient Critical Care time: I spent a total of [] minutes of critical care time on this patient's care today; this time is exclusive of procedural time. Quality VTE Deep Vein Thrombosis/Pulmonary Embolism Present on Admission: No
[2021-06-04] MEDS: DEXTROSE 5%-0.9% NS 1,000 ML 125 ML IV (22:24)
[2021-06-04] MEDS: ATORVASTATIN 20 MG TABLET 40 MG PO (22:25)
[2021-06-04] MEDS: OXYCODONE/ACETAMINOPHEN 5/325 TABLET 1 TAB PO (22:25)
[2021-06-04] MEDS: METOPROLOL ER 25 MG TABLET PO (22:26)
[2021-06-05] VITALS (9 sets, daily range): BP systolic 122–189; BP diastolic 46–64; PULSE 65–79; RESP 15–18; TEMP 36.6–37.1; O2SAT 95–98
[2021-06-05 06:29] LABS: Add Manual Diff / Slide Review NO; Basophils Absolute Auto 0 /uL (0-100); Basophils Percent Auto 0.2 % (0-2); Eosinophils Absolute Auto 200 /uL (0-450); Eosinophils Percent Auto 1.6 % (2-4); Hematocrit 34.1 % (36-46); Hemoglobin 11.6 g/dL (12.0-16.0); Lymphocytes Absolute Auto 2800 /uL (1100-4500); Lymphocytes Percent Auto 21.7 % (25-40); Mean Corpuscular Hemoglobin 29.4 PG (26-34); Mean Corpuscular Volume 86.4 fL (80-100); Monocytes Absolute Auto 1000 /uL (0-900); Monocytes Percent Auto 7.4 % (3-14); Neutrophils Absolute Auto 9000 /uL (1500-7000); Neutrophils Percent Auto 69.1 % (50-75); Platelet Count 251 X10^3/uL (150-400); Red Blood Cell Count 3.95 X10^6/uL (4.0-5.2); Red Cell Distribution Width 13.1 % (11.6-14.8)
[2021-06-05 06:36] LABS: BUN Creatinine Ratio 19.2 (6-22); Blood Urea Nitrogen 14 mg/dL (7-17); Calcium 8.3 mg/dL (8.4-10.2); Carbon Dioxide 30 mmol/L (22-32); Chloride 95 mmol/L (98-107); Estimated Glomerular Filt Rate > 60.0 mL/min (>60); Glucose 124 mg/dL (80-110); HEMOLYSIS < 15 (0-50); Potassium 3.8 mmol/L (3.4-5.1); Sodium 128 mmol/L (137-145)
[2021-06-05] MEDS: OXYCODONE/ACETAMINOPHEN 5/325 TABLET 1 TAB PO (07:45)
[2021-06-05] MEDS: DEXTROSE 5%-0.9% NS 1,000 ML 125 ML IV ×2 (08:40→21:30)
[2021-06-05] MEDS: METOPROLOL ER 25 MG TABLET PO ×2 (09:14→21:38)
[2021-06-05] MEDS: lisinopriL 10 MG TABLET PO (09:14)
[2021-06-05] MEDS: ENOXAPARIN 40 MG/0.4 ML SYRINGE SUBCUT (09:15)
[2021-06-05] MEDS: NYSTATIN SUSP 500,000 UNIT/5 ML UDC 500000 UNIT PO ×3 (13:08→21:39)
--- NOTE | 2021-06-05 19:59 | P.PN_ITS ---
Subjective Subjective Interval history: The patient denies having any stool output today. She reports some discomfort at the left parotiditis site, and states warm compresses are helping. She denies having issues with low Na in the past. Exam Vital Signs (past 8 hours): - 06/05/21 12:00 06/05/21 16:42 06/05/21 19:29 Temperature 98.8 F 98.6 F Pulse Rate 65 65 65 Respiratory Rate 18 15 16 Blood Pressure 139/64 139/64 Pulse Oximetry 96 95 95 Oxygen Delivery Method Room Air Oxygen Flow Rate 0 Const Other: Patient is sitting up in bed upon my entering the room, in no apparent acute distress. HENMT Other: Area of slight erythema over the left cheek, and slightly warm to touch. Tenderness appreciated with light palpation. Eyes Other: No scleral icterus appreciated. Neck Other: No carotid bruits appreciated. Trachea midline. Resp Other: Clear to auscultation bilaterally. Cardio Other: Regular rate and rhythm. S1 and S2 heart sounds auscultated, with no extra heart sounds or murmurs appreciated. No peripheral edema noted. GI Other: Soft, non-tender, non-distended. Bowel sounds present. Extrem Other: Palpable dorsalis pedis pulses bilaterally. Objective Labs Result Diagrams: 06/05/21 05:55 06/05/21 05:55 Labs: Laboratory Results - last 24 hr 06/05/21 06/05/21 05:55 05:55 WBC 13.0 H RBC 3.95 L Hgb 11.6 L Hct 34.1 L MCV 86.4 MCH 29.4 MCHC 34.0 RDW 13.1 Plt Count 251 Neut % (Auto) 69.1 Lymph % (Auto) 21.7 L [place] % (Auto) 7.4 Eos % (Auto) 1.6 L Baso % (Auto) 0.2 Neut # (Auto) 9000 H Lymph # (Auto) 2800 [place] # (Auto) 1000 H Eos # (Auto) 200 Baso # (Auto) 0 Sodium 128 L Potassium 3.8 Chloride 95 L Carbon Dioxide 30 BUN 14 Creatinine 0.73 Estimated GFR > 60.0 BUN/Creatinine Ratio 19.2 Glucose 124 H Calcium 8.3 L [facility] Medical History Cataract (1999) Chicken pox Chronic back pain (2015) Colon polyps (1997) Graves' disease (2005) Hemorrhoids Hypertension Mumps Osteopenia (05/14/15) RLS (restless legs syndrome) (2015) Shoulder pain (2001) Whooping cough Surgical History Anesthesia History of cataract surgery (1999) History of shoulder surgery (2001) Family History Father Cancer Heart disease Mother Cancer Pancreatic cancer Brother Alcoholism Sister No problems noted. Social History household members: none Smoking Status: Former smoker alcohol intake: never Assessment & Plan Assessment & Plan narrative: Assessment: 1. Possible C. diff, pending stool culture 2. Left-sided parotiditis 3. Hyponatremia, unclear chronicity 4. Hx of Grave's disease 5. Hx of hypertension 6. Hx of depression Plan: 1. Patient endorses multiple bouts of diarrhea after taking amoxicillin and Augment at home for problem 2, as prescribed by ENT physician. Has not had repeat BM's here, making C. diff unlikely. 2. As per problem 1. Warm compresses to the affected area for now. 3. Likely due to GI losses, possible component of being on SSRI at home. Patient asymptomatic. Na has improved with IV normal saline. 4. Will resume home methimazole 5 mg daily. 5. Will resume home lisinopril-HCTZ. 6. Will resume home citalopram. VTE prophylaxis: Lovenox 40 mg daily Disposition: Home, once clinically stable Time Spent With Patient Critical Care time: I spent a total of [] minutes of critical care time on this patient's care today; this time is exclusive of procedural time. Quality VTE Deep Vein Thrombosis/Pulmonary Embolism Present on Admission: No
[2021-06-05] MEDS: CITALOPRAM 10 MG TABLET 20 MG PO (21:34)
[2021-06-05] MEDS: methIMAzole 5 MG TABLET PO (21:38)
[2021-06-05] MEDS: ATORVASTATIN 20 MG TABLET 40 MG PO (21:38)
[2021-06-06 04:38] VITALS: BP 171/65; PULSE 70; RESP 16; TEMP 36.7; O2SAT 96
[2021-06-06] MEDS: DEXTROSE 5%-0.9% NS 1,000 ML 125 ML IV (05:30)
[2021-06-06] MEDS: ENOXAPARIN 40 MG/0.4 ML SYRINGE SUBCUT (08:40)
[2021-06-06 08:41] VITALS: BP 186/71; PULSE 78
[2021-06-06] MEDS: METOPROLOL ER 25 MG TABLET PO (08:41)
[2021-06-06 08:42] VITALS: BP 186/71; PULSE 78
[2021-06-06] MEDS: lisinopriL 10 MG TABLET PO (08:42)
[2021-06-06] MEDS: NYSTATIN SUSP 500,000 UNIT/5 ML UDC 500000 UNIT PO (08:43)
[2021-06-06 08:46] VITALS: BP 186/71; PULSE 78; RESP 16; TEMP 36.8; O2SAT 96
[2021-06-06 09:15] LABS: Add Manual Diff / Slide Review NO; Basophils Absolute Auto 0 /uL (0-100); Basophils Percent Auto 0.4 % (0-2); Eosinophils Absolute Auto 200 /uL (0-450); Eosinophils Percent Auto 2.3 % (2-4); Hematocrit 35.6 % (36-46); Hemoglobin 11.8 g/dL (12.0-16.0); Lymphocytes Absolute Auto 2300 /uL (1100-4500); Lymphocytes Percent Auto 22.2 % (25-40); Mean Corpuscular HGB Conc 33.3 % (30-36); Mean Corpuscular Hemoglobin 28.9 PG (26-34); Mean Corpuscular Volume 86.8 fL (80-100); Monocytes Absolute Auto 600 /uL (0-900); Monocytes Percent Auto 6.2 % (3-14); Neutrophils Absolute Auto 7200 /uL (1500-7000); Neutrophils Percent Auto 68.9 % (50-75); Platelet Count 267 X10^3/uL (150-400); Red Blood Cell Count 4.09 X10^6/uL (4.0-5.2); Red Cell Distribution Width 13.3 % (11.6-14.8); White Blood Cell Count 10.4 X10^3/uL (4.5-11.0)
[2021-06-06 09:27] LABS: BUN Creatinine Ratio 9.7 (6-22); Blood Urea Nitrogen 6 mg/dL (7-17); Calcium 8.3 mg/dL (8.4-10.2); Carbon Dioxide 28 mmol/L (22-32); Chloride 101 mmol/L (98-107); Estimated Glomerular Filt Rate > 60.0 mL/min (>60); Glucose 104 mg/dL (80-110); HEMOLYSIS < 15 (0-50); Potassium 4.6 mmol/L (3.4-5.1); Sodium 132 mmol/L (137-145)
[2021-06-06] MEDS: OXYCODONE/ACETAMINOPHEN 5/325 TABLET 1 TAB PO (09:54)
[2021-06-06 12:45] VITALS: BP 153/37; PULSE 73; RESP 15; TEMP 37; O2SAT 98
--- NOTE | 2021-06-06 13:00 | P.DS_ITS ---
History of Present Illness History of Present Illness Chief complaint: Diarrhea,pt on Augmentin Narrative: The patient is an 85-year-old female with a history of Graves disease, hypertension, chronic back pain, restless leg syndrome who developed parotidits about 2 weeks ago.? The patient was treated with 7 days of amoxicillin.? She continued to have swelling pain and drainage from the left parotid gland.? She had a CT scan of the neck which revealed the following:??Solid mass in the left hypopharynx centered within the piriform sinus demonstrated.? 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 Directvisualization is recommended.2. No lymphadenopathy in the neck by size criteria.3. Solid left thyroid nodule measuring up to 2.1 cm. Recommend further evaluation withthyroid ultrasound.? Patient was referred to ear nose and throat for further evaluation.? Upon his evaluation he felt this was likely a cyst and not a neoplasm.? The patient was also started on Augmentin for treatment of her parotidits.? She she took the Augmentin for total of 3 days.? Patient reports she had poor appetite as there was drainage from her parotid gland with pus draining causing decreased appetite.? It she had been trying to drink liquids as much as possible.? The patient reports development abrupt onset diarrhea today.? She initially had formed stools and subsequently had loose watery stools.? She reports crampy abdominal pain associated with this.? She did not have any bloody stools or blood right bright red blood per rectum.? She did have some nausea and vomiting.? She had no hematemesis.? She denies any fever or chills.? She had no shortness of breath, no headache, no blurred vision, the patient was dizzy and weak.? She [place] on [address].? She was transported here for weakness dizziness.? The patient reports since arrival she has had no further stools for the past 2.5 hours.? Patient is admitted to the hospital for further evaluation of diarrhea, dehydration, and weakness. Discharge Providers Provider Date of admission: 06/04/21 20:18 Discharge Date: 06/06/21 Primary care physician: Kj Schuster MD Discharge provider: Zaid Spencer MD Summary Hospital Course Hospital Course: 1. Possible C. diff, pending stool culture 2. Left-sided parotiditis 3. Hyponatremia, unclear chronicity 4. Hx of Grave's disease 5. Hx of hypertension 6. Hx of depression As of discharge 1. Patient endorses multiple bouts of diarrhea after taking amoxicillin and Augmentin at home for problem 2, as prescribed by ENT physician. Has not had repeat BM's here, so does nto have Cdif. 2. resolved 3. Likely due to GI losses, probable component of being on SSRI at home. Patient asymptomatic. Na has improved with IV normal saline from 121 to 132. 4. methimazole 5 mg daily. 5. lisinopril-HCTZ. 6. citalopram. (likely one of the causes of her Na level of 121) Status at Discharge Cognitive/behavioral status at discharge: oriented Functional status at discharge: independent ambulation Overall status at discharge: patient is back to baseline Exam Vital Signs (past 8 hours): - 06/06/21 08:41 06/06/21 08:42 06/06/21 08:46 Temperature 98.2 F Pulse Rate 78 78 78 Respiratory Rate 16 Blood Pressure 186/71 H 186/71 H 186/71 H Pulse Oximetry 96 Oxygen Delivery Method Room Air Oxygen Flow Rate 0 Narrative Exam Narrative: Heart is regular rate and rhythm without murmur Lungs are clear to auscultation bilaterally Extremities have no ankle edema She is up and walking around in her room. There is no left parotid swelling or oral abnormality seen. There is yellowish discoloration of her tongue from the nystatin Objective Labs Result Diagrams: 06/06/21 08:30 06/06/21 08:30 Labs: Laboratory Results - last 24 hr 06/06/21 06/06/21 08:30 08:30 WBC 10.4 RBC 4.09 Hgb 11.8 L Hct 35.6 L MCV 86.8 MCH 28.9 MCHC 33.3 RDW 13.3 Plt Count 267 Neut % (Auto) 68.9 Lymph % (Auto) 22.2 L [place] % (Auto) 6.2 Eos % (Auto) 2.3 Baso % (Auto) 0.4 Neut # (Auto) 7200 H Lymph # (Auto) 2300 [place] # (Auto) 600 Eos # (Auto) 200 Baso # (Auto) 0 Sodium 132 L Potassium 4.6 Chloride 101 Carbon Dioxide 28 BUN 6 L Creatinine 0.62 Estimated GFR > 60.0 BUN/Creatinine Ratio 9.7 Glucose 104 Calcium 8.3 L PFSH Medical History Cataract (1999) Chicken pox Chronic back pain (2015) Colon polyps (1997) Graves' disease (2005) Hemorrhoids Hypertension Mumps Osteopenia (05/14/15) RLS (restless legs syndrome) (2015) Shoulder pain (2001) Whooping cough Surgical History Anesthesia History of cataract surgery (1999) History of shoulder surgery (2001) Family History Father Cancer Heart disease Mother Cancer Pancreatic cancer Brother Alcoholism Sister No problems noted. Social History household members: none Smoking Status: Former smoker alcohol intake: never Discharge Plan Discharge Plan Patient Disposition: Home Provider Discharge Comment: Follow up with Dr. Schuster this week Discharge orders & Medications Prescriptions: Continued COENZYME Q10/VITAMIN E (CO-Q-10 100mg) 100 mg PO QDAY Qty: 0 0RF atorvastatin [Lipitor] 40 MG tablet 40 mg PO HS Qty: 90 1RF metoprolol tartrate 25 MG tablet 25 mg PO BID Qty: 180 1RF methimazole 5 MG tablet 5 mg PO QDAY Qty: 90 1RF citalopram 20 MG tablet 20 mg PO QDAY Qty: 90 0RF lisinopril-hydrochlorothiazide 10 MG/12.5 MG tablet 1 tab PO BID Qty: 180 1RF betamethasone dipropionate 0.05 % ointment 0 Topical QWEEK 0RF Changed oxycodone-acetaminophen 5 MG/325 MG tablet 1 tab PO QID MDD 4 PRN (Reason: Pain (Scale Score 1-3)) Qty: 15 0RF Follow up/Referrals: Kj Schuster MD [Primary Care Provider] - Diet/Activity/Treatments Diet: Regular Discharge Data Primary Care Provider: Kj Schuster Attending Provider: Jennifer Ortega VTE Deep Vein Thrombosis/Pulmonary Embolism Present on Admission: No
--- NOTE | 2021-06-06 15:21 | CM.DPNOTE ---
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 Patient DC home w/spouse to [place] today, close outpatient f/u recommended. Indp. ambulation and back to baseline line upon DC JW
== END 2021-06-06 15:24 | disposition home or self-care (01) ==
LOC: ED 19:45 → AC 06-05 04:41
PROVIDERS: Family Medicine; Admitting Provider Internal Medicine; Emergency Provider Emergency Medicine; PCP Family Medicine; Referring Provider Emergency Medicine; Visit Provider Internal Medicine
DX: R11.2 Nausea with vomiting, unspecified (principal); R19.7 Diarrhea, unspecified; R53.1 Weakness; R42 Dizziness and giddiness; E87.1 Hypo-osmolality and hyponatremia; E78.5 Hyperlipidemia, unspecified; I10 Essential (primary) hypertension; E05.00 Thyrotoxicosis with diffuse goiter without thyrotoxic crisis or storm; F32.9 Major depressive disorder, single episode, unspecified; F17.210 Nicotine dependence, cigarettes, uncomplicated; Z20.822 Contact with and (suspected) exposure to COVID-19
CPT/HCPCS: 36415; 80048; 80053; 81003; 83605; 83690; 83735; 85025; 87040; 87635; 94762; 96365; 96366; 96372; 99284; C9803; G0378; J1650

== ENCOUNTER → 2021-10-06 11:45 | Outpatient (CLI) | payer MEDICARE, SELFPAY ==
[2021-06-04 21:13] VITALS: BMI 22.3
--- NOTE | 2021-10-06 11:47 | DI.US.S_ITS ---
PROCEDURE: US THYROID INDICATIONS: NODULE ON CT TECHNIQUE: Real-time scanning was performed of the thyroid gland, with image documentation. COMPARISON: [facility], CT, CT SOFT TISSUE NECK W CON, 05/24/2021, 22:38. FINDINGS: Right: Thyroid lobe measures 4.1 x 2.0 x 1.5 cm, and is homogeneous in echotexture. Left: Thyroid lobe measures 5.7 x 1.8 x 1.6 cm, and is homogenous in echotexture. Isthmus: 0.3 cm thick. Nodule number: 1 Location: Left inferior Size: 2.2 x 1.8 x 1.8 cm. Composition: Predominantly solid Echogenicity: Hypoechoic Shape: wider than tall. Margins: Smooth Echogenic foci: None. Total points: 4 ACR TI-RADS category: Moderately suspicious Nodule number: 2 Location: Left mid Size: 1.5 x 1.0 x 1.2 cm. Composition: Predominantly solid Echogenicity: Hypoechoic Shape: wider than tall. Margins: Smooth Echogenic foci: None Total points: 4 ACR TI-RADS category: Moderately suspicious Nodule number: 3 Location: Right mid Size: 1.1 x 0.5 x 0.9 cm. Composition: Predominantly solid Echogenicity: Hypoechoic Shape: wider than tall. Margins: Smooth Echogenic foci: None Total points: 4 ACR TI-RADS category: Moderately suspicious IMPRESSION: Left thyroid nodule measuring 2.2 cm. TR 4. Moderately suspicious. -Recommend FNA. ACR TI-RADS definitions and recommendations: TI-RADS 1 (benign): 0 points. FNA not needed. TI-RADS 2 (not suspicious): 2 points. FNA not needed. TI-RADS 3 (mildly suspicious): 3 points. * FNA if 2.5 cm or larger, follow up if 1.5 cm or larger (at 1, 3, and 5 years). TI-RADS 4 (moderately suspicious): 4-6 points. * FNA if 1.5 cm or larger, follow up if 1 cm or larger (at 1, 2, 3, and 5 years). TI-RADS 5 (highly suspicious): 7 points or more. * FNA if 1 cm or larger, follow up if 0.5 cm or larger (every year for 5 years). Dictated by: Carlitos SHAH Interpreted: Miki Dietz MD on 10/06/2021 at 14:51 Transcribed by: KD on 10/06/2021 at 14:53 Approved by: Miki Dietz M.D. on 10/06/2021 at 18:37
== END ==
PROVIDERS: PCP Nurse Practitioner Family; Referring Provider Nurse Practitioner Family; Visit Provider Nurse Practitioner Family
DX: R93.89 Abnormal findings on diagnostic imaging of other specified body structures (principal); E04.2 Nontoxic multinodular goiter
CPT/HCPCS: 76536

== ENCOUNTER → 2021-11-27 10:01 | Outpatient (CLI) | payer MEDICARE, SELFPAY ==
[2021-06-04 21:13] VITALS: BMI 22.3
--- NOTE | 2021-11-27 | DI.US.S_ITS ---
PROCEDURE: US FINE NEEDLE ASPIRATION INDICATIONS: ABNORMAL THYROID ULTRASOUND TECHNIQUE: The indications, alternatives, benefits, risks, and complications of the procedure were explained to the patient. Written informed consent was obtained and placed in the chart. The area of interest was examined sonographically and a site was chosen for ultrasound guided percutaneous sampling. The skin was prepared and draped in the usual fashion, and anesthetized with 1% lidocaine infiltrated from the skin down to the lesion. Multiple passes were then performed, with contents emptied into an appropriate pathology specimen container. A bandage was applied to the area of access at completion of the study. COMPARISON: None. FINDINGS: Location(s) of lesion(s) sampled: Left inferior thyroid nodule [place]: 25 gauge hypodermic needles. Number of passes: 5 Medications: 1% lidocaine for local anaesthesia. Complications: None. IMPRESSION: Successful ultrasound-guided left inferior thyroid nodule fine needle aspiration, with cytology results pending. Dictated by: Oanh Hawkins MD, PhD on 11/27/2021 at 15:00 Approved by: Oanh Hawkins MD, PhD on 11/27/2021 at 15:00
--- NOTE | 2021-11-27 | PATH_ITS ---
Note [facility] Accession Number: [id number] TESTS RESULT FLAG UNITS REF RANGE LAB Clinician Provided Cytology Information No. of containers..01 Other (Miscellaneous) No. of containers..00 Previously Prepared Cytology Slide Source: LEFT THYROID INFERIOR NODULE DIAGNOSIS: LEFT THYROID INFERIOR NODULE, FINE NEEDLE ASPIRATION. NEGATIVE FOR MALIGNANT CELLS. ADEQUATE FOR EVALUATION. FOLLICULAR GROUPS ARE PRESENT. FAVOR BENIGN FOLLICULAR (GOITEROUS) NODULE ([place] CATEGORY II) WITH HURTHLE CELL CHANGES, SEE COMMENT. COMMENT: MICROSCOPIC EXAMINATION REVEALS A MILDLY CELLULAR ASPIRATE, COMPOSED OF COLLOID, MACROPHAGES, AND FOLLICULAR GROUPS WITH HURTHLE CELL CHANGES, WITHOUT SIGNIFICANT CYTOLOGIC OR ARCHITECTURAL ATYPIA. THESE FINDINGS OVERALL FAVOR A BENIGN FOLLICULAR (GOITEROUS) NODULE. CORRELATION WITH CLINICAL AND RADIOGRAPHIC FINDINGS IS RECOMMENDED TO ENSURE THAT THE NODULE HAS BEEN ADEQUATELY SAMPLED. ACCORDING TO THE [place] REPORTING SYSTEM FOR THYROID CYTOPATHOLOGY, THE RISK OF MALIGNANCY IN THE CATEGORY BENIGN-CATEGORY II IS 0-3%; THEREFORE RECOMMEND CONTINUED ULTRASOUND SURVEILLANCE WITH REPEAT FNA IF THE NODULE SIGNIFICANTLY INCREASES IN SIZE. Pathologist ICD10: 01 E04.2 Clinical history: 01 FINDINGS: Right: Thyroid lobe measures 4.1 x 2.0 x 1.5 cm, and is homogeneous in echotexture. Left: Thyroid lobe measures 5.7 x 1.8 x 1.6 cm, and is homogenous in echotexture. Isthmus: 0.3 cm thick. Signed out by: Casey Tony MD, Pathologist NPI- [id number] Performed by: Marty Dickson, Senior Cyber Security Analyst ([facility]) Gross description: 30 CC, RED, CLOUDY /LCS 11/28/2021 0358 Local FLAG LEGEND: L-Low Normal,H-High Normal,LL-Alert Low,HH-Alert High <-Panic Low,>-Panic High,A-Abnormal,AA-Critical Abnormal Performed at: 01 =Z [facility] [address] [place] [address] [address], [place] [address] Tom Yanez MD, Performed at: 01 [facility] [address] [place] [address] [address], [place], [place] [id number] MD Tom Yanez MD Phone: [phone]
== END ==
PROVIDERS: PCP Nurse Practitioner Family; Referring Provider Nurse Practitioner Family; Visit Provider Nurse Practitioner Family
DX: E04.1 Nontoxic single thyroid nodule (principal)
CPT/HCPCS: 10005

== ENCOUNTER → 2022-05-27 11:45 | Outpatient (CLI) | payer MEDICARE, SELFPAY ==
[2021-06-04 21:13] VITALS: BMI 22.3
--- NOTE | 2022-05-27 | DI.US.S_ITS ---
PROCEDURE: US THYROID INDICATIONS: HURTHLE CELL METAPLASIA TECHNIQUE: Real-time scanning was performed of the thyroid gland, with image documentation. COMPARISON: [facility], , US THYROID, 10/06/2021, 12:43. FINDINGS: Sent in the prior examination there has been no significant change in the previously noted thyroid nodularity. The larger lesion in the left lobe of the patient's thyroid gland on today's examination measures approximately 2.2 centimeters in maximal dimension previously measuring 2.2 centimeters in maximal dimension. The smaller lesion measures approximately 1.5 centimeters in maximal dimension previously measuring 1.5 centimeters. The nodule in the right lobe of the thyroid remains stable at 0.9 centimeters in maximal dimension. No new thyroid nodularity is identified. Right: 4.1 x 2.0 x 1.5 centimeters Left: 5.7 x 1.8 x 1.6 centimeters Isthmus: 3.1 millimeters IMPRESSION: Stable appearance of the thyroid gland when compared to prior examination with stable nodularity involving both aspects of the gland. No new findings identified. Dictated by: Dion Rodriguez M.D. on 05/28/2022 at 9:03 Approved by: Dion Rodriguez M.D. on 05/28/2022 at 9:09
== END ==
PROVIDERS: PCP Nurse Practitioner Family; Referring Provider Nurse Practitioner Family; Visit Provider Nurse Practitioner Family
DX: D34 Benign neoplasm of thyroid gland (principal); R92.8 Other abnormal and inconclusive findings on diagnostic imaging of breast
CPT/HCPCS: 76536

== ENCOUNTER → 2022-06-18 11:51 | Outpatient (CLI) | payer MEDICARE, SELFPAY ==
[2021-06-04 21:13] VITALS: BMI 22.3
--- NOTE | 2022-06-18 | DI.MG.S_ITS ---
UNILATERAL LEFT DIGITAL DIAGNOSTIC MAMMOGRAM 3D/2D WITH ADDITIONAL VIEWS: 06/18/2022 CLINICAL: Additional evaluation requested from prior study. Comparison is made to exams dated: 04/08/2022 mammogram - [facility], 08/31/2005 mammogram, and 11/07/2007 mammogram - [facility]. There are scattered areas of fibroglandular density in the left breast (category b / 25%-50% glandular tissue). There is a 0.7 cm group of fine amorphous calcifications in the left breast at 6 o'clock middle depth 8 cm from the nipple. No other significant masses or calcifications are seen in the breast. IMPRESSION: SUSPICIOUS OF MALIGNANCY The 0.7 cm grouped fine amorphous calcifications in the left breast are suspicious of malignancy. A stereotactic biopsy is recommended. Findings and recommendations were discussed with the patient by Dr. Mahmood in person at time of exam. This exam was interpreted at Station ID: [id number]. NOTE: For mammograms, a report in lay terms will be sent to the patient. Approximately 15% of breast malignancies will not be visualized mammographically. In the management of a palpable breast mass, a negative mammogram must not discourage biopsy of a clinically suspicious lesion. Electronically Signed By: Reva ann/:06/18/2022 12:37:47 letter sent: Biopsy Required ACR BI-RADS Category 4: Suspicious abnormality [id number]
== END ==
PROVIDERS: PCP Nurse Practitioner Family; Referring Provider Nurse Practitioner Family; Visit Provider Nurse Practitioner Family
DX: R92.8 Other abnormal and inconclusive findings on diagnostic imaging of breast (principal); R92.1 Mammographic calcification found on diagnostic imaging of breast
CPT/HCPCS: 77065; G0279